=== PATIENT | female | born 1965 | race Caucasian/White ===

== ENCOUNTER → 2019-05-30 | Outpatient (CLI) | payer BC ==
--- NOTE | 2019-05-30 17:36 | RADIOLOGY REPORT (SQ) ---
EXAM DESCRIPTION: NM HIDA SCAN WITH CCK COMPLETED DATE/TIME: 05/30/2019 10:42 am REASON FOR STUDY: EPIGASTRIC PAIN (R10.13) R10.13 EPIGASTRIC PAIN COMPARISON: Right upper quadrant ultrasound report only, [facility] 05/24/2019 RADIONUCLIDE AND DOSE: DOSAGE RADIONUCLIDE: 5.3 millicuries Tc99m Mebrofenin. DOSAGE CCK: 1.4 micrograms. DOSAGE MORPHINE: Not required. The route of agent administration: Intravenous TECHNIQUE: Serial imaging right upper quadrant up to 60 minutes following injection of radionuclide. CCK injected after gallbladder visualized. LIMITATIONS: None. FINDINGS: LIVER: Normal visualization, activity clears by 40 minutes. INTRAHEPATIC BILE DUCTS: Normal visualization. COMMON BILE DUCT: Normal visualization. GALLBLADDER: Normal visualization. Calculated ejection fraction of 20%. Normal range is greater th an 35%. PHYSICAL RESPONSE: Patients presenting complaint was reproduced. The patient's symptoms of upper ab dominal cramping, bloating were reproduced. OTHER: No other significant finding. IMPRESSION: No scintigraphic evidence of biliary outflow obstruction Depressed gallbladder ejection fraction, IV CCK reproduced the patient's symptoms. TECHNICAL DOCUMENTATION: JOB ID: [id number] [email or web address] All Rights Reserved Reading location - IP/workstation name: [email or web address]
== END ==
LOC: RAD 08:00
PROVIDERS: ATTEND Family Medicine
DX: R10.13 Epigastric pain (principal)
CPT/HCPCS: 78227; J2805; A9537; Q9969